=== PATIENT | female | born 1945 | race Caucasian/White ===

== ENCOUNTER → 2017-07-11 12:53 | Outpatient (CLI) | payer MEDICARE, SELFPAY ==
--- NOTE | 2017-07-11 12:58 | STE_ITS ---
Reason For Study: ATRIAL FIBRILLATION/FLUTTER Stress Results Protocol: Stress Echocardiogram Maximum Predicted HR: 146 bpm Target HR: 124 bpm% Maximum Pr edicted HR: 84 % DurationHeart Rate Stage (mm:ss) (bpm) BP BASELINE 60 148/82 MODBRUCE PROTOCOL- STAGE 1 3:00 10 1 154/80 MODBRUCE PROTOCOL- STAGE 2 1:00 12 2 / RECOVERY 62 122/60 Stress Duration: 4:00 mm:ss Maximum Stress HR: 122 bpm Baseline Echocardiogram Findings The estimated ejection fraction is 65 %. Stress Echo Wall motion Data Resting WMIntermediate WMStress WM Resting Wall Motion Wall Motion Stress No regional wall motion No regional wall motion abnormalities noted. abnormalities noted. EKG Data The baseline ECG demonstrates normal sinus rhythm with at rate of _ beats per minute. Interpretation Summary The estimated ejection fraction is 65 %. Normal adequate modified Brayan treadmill echocardiogram. Negative for ischemia by EKG and echocardiographic criteria. No anginal symptoms noted. No arrhythmias noted. Poor exercise capacity for age. Appropriate blood pressure response to exercise. Final LVEF is 75%. Test terminated due to leg discomfort and fatigue. Ordering Physician: Chu Koehler Referring Physician: Chu Koehler Performed By: Maame Hall, CARLOS, RVT
== END ==
PROVIDERS: Family Provider Nurse Practitioner Primary Care; PCP Nurse Practitioner Primary Care; Visit Provider Internal Medicine Cardiovascular Disease
DX: I48.0 Paroxysmal atrial fibrillation (principal); E78.5 Hyperlipidemia, unspecified; I10 Essential (primary) hypertension; I44.2 Atrioventricular block, complete; R55 Syncope and collapse; Z95.0 Presence of cardiac pacemaker
CPT/HCPCS: 93017; 93350

== ENCOUNTER → 2019-02-22 08:04 | Outpatient (CLI) | payer MEDICARE, SELFPAY ==
[2019-02-18 15:24] VITALS: BMI 29.5
[2019-02-22 09:11] LABS: AST(SGOT) 12 U/L (15-37); Alanine Aminotransfer ALT/SGPT 15 U/L (13-56); Albumin, Serum 3.9 g/dL (3.2-5.0); Alkaline Phosphatase 49 U/L (45-117); Bilirubin, Direct 0.17 mg/dL (0.00-0.30); Cholesterol 173 mg/dL (200); Globulin 3.7 g/dL (2.2-4.2); High Density Lipoprotein 55 mg/dL; Protein, Total 7.6 g/dL (6.4-8.2); Triglycerides 139 mg/dL; Very Low Density Lipoprotein 28 mg/dL (5-40)
== END ==
PROVIDERS: Family Provider Nurse Practitioner Primary Care; PCP Nurse Practitioner Primary Care; Referring Provider Internal Medicine Cardiovascular Disease; Visit Provider Internal Medicine Cardiovascular Disease
DX: E78.5 Hyperlipidemia, unspecified (principal)
CPT/HCPCS: 36415; 80061; 80076

== ENCOUNTER 2019-12-08 06:57 | Observation (INO) | payer MEDICARE, SELFPAY ==
[2019-09-02 10:30] VITALS: BMI 30.4
[2019-12-08] VITALS (11 sets, daily range): BP systolic 104–139; BP diastolic 59–88; PULSE 69–91; RESP 16–18; TEMP 36.3–37.1; O2SAT 93–99; BMI 31.1; BMI 30.4; BMI 30.5
--- NOTE | 2019-12-08 07:05 | RAD_ITS ---
STUDY: X-RAY CHEST REASON FOR EXAM: Female, 74 years old. chest pain TECHNIQUE: Single AP portable view of the chest. COMPARISON: None. FINDINGS: Left subclavian dual-lead pacemaker which is unchanged. Poor inspiration with some bibasilar atelectasis. There is no demonstrated pleural abnormality. Normal size heart. Normal mediastinum and caridad. Normal visualized pulmonary arteries. There is atherosclerotic tortuosity of the aortic arch and descending thoracic aorta. Normal visualized thoracic spine. Normal visualized ribs, clavicles, and shoulders. There is no demonstrated abnormality of the visualized soft tissue structures of the upper abdomen. RAD/Chest 1 View (Portable) IMPRESSION: Poor inspiration with some bibasilar atelectasis. Electronically Signed: Layo Vincent MD at 7:41 EDT Tel , Service support ,
--- NOTE | 2019-12-08 07:05 | EKG12_ITS ---
Test Reason : CP Blood Pressure : / mmHG Vent. Rate : 081 BPM Atrial Rate : 088 BPM P-R Int : 000 ms QRS Dur : 078 ms QT Int : 356 ms P-R-T Axes : 000 -10 033 degrees QTc Int : 413 ms Atrial fibrillation with occasional ventricular-paced complexes Abnormal ECG Confirmed by RAFAEL HERNANDEZ, TYRONE ([id number]), copy editor JÚNIOR RAPP ([id number]) on 12/11/2019 9:59:52 AM Referred By: DANDY Confirmed By:TYRONE HALL MD
--- NOTE | 2019-12-08 07:06 | ED.VISSUMM ---
- ER Visit Summary Date of Service: 12/08/19 Chief Complaint: Chest pain History of Present Illness: The patient is a [address] Koehler and Dr. Garcia. She reports she was awakened from sleep by chest pain at 3:00 this morning. Is been a constant pain that waxes and wanes. She describes it as sharp. Is 9 at 10 at worst and 3-10 currently. Is worsened by exertion. Is relieved by Advil. She reports it makes her nauseated and short of breath. She has not vomited. She also complains of generalized weakness. Patient does have a history of atrial fibrillation as well as Xarelto. Her last dose was at 4:00 yesterday. Physical Examination: Vitals: Stable. Afebrile. General: Well-nourished and well-developed. Head: Normocephalic atraumatic. Neck: Supple, no lymphadenopathy. No JVD. Nontender. Cardiovascular: Regular rate and rhythm. No murmurs. Respiratory: No respiratory distress. Clear to auscultation bilaterally. Abdominal: Soft, nontender, nondistended, normal bowel sounds. No guarding, rebound, or peritoneal signs. Back: Nontender. Extremities: Nontender, no edema. Skin: Normal color, no rash. Neurologic: Alert and oriented ?3. Cranial nerves II through XII are intact. Normal strength and sensation. Psych: Normal affect. Test Results: EKG shows A. fib at 81 with ventricular paced PVCs. This is unchanged from June 2017. CBC shows monocytes of 12. Chem-7 shows a chloride of 109 and glucose 110. Troponin is negative. Clinical Impression(s) from Imaging Studies Chest X-Ray 12/08/19 07:05 IMPRESSION: Poor inspiration with some bibasilar atelectasis. Electronically Signed: Layo Vincent MD at 7:41 EDT Tel , Service support , Emergency Department Course and Treatment: Patient was given a dose of aspirin p.o. and Zofran IV. She refused pain medications. Chart review shows she had a stress echo in July 2017 that was negative. Treatment Plan: Patient will be discussed with the hospitalist and admitted for further evaluation and treatment. Disposition: Admitted in stable condition. Impression: 1. Chest pain. 2. Atrial fibrillation. 3. Coagulopathy on Xarelto. 4. ANUSHA score of 3. This note was generated with [employer] dictation software. It may contain incorrect words, spelling, and punctuation that were not noted in review of the chart prior to signing ED Disposition - Plan for ED Patient: Referrals: Kimberly Barrios NP, DEHYDROGENATION SUPERVISOR-C [Primary Care Provider] -
[2019-12-08] MEDS: 0.9% Normal Saline 1,000 ML 150 ML IV (07:15)
[2019-12-08] MEDS: Ondansetron 4 MG/2 ML Vial IV (07:15)
[2019-12-08] MEDS: Aspirin 81 MG TAB.CHEW 324 MG PO (07:15)
[2019-12-08 07:19] LABS: Absolute Lymphocyte Count 1.83 X10^3/uL (0.83-4.51); Absolute Neutrophil Count 4.9 X10^3/uL (2.0-7.7); Basophil# 0.03 X10^3/uL; Basophil% 0.4 % (0-1); Eosinophil# 0.27 X10^3/uL; Eosinophils% 3.3 % (0-5); Hematocrit 43.4 % (37-47); Hemoglobin 13.5 g/dL (12.0-15.0); Lymphocyte # 1.83 X10^3/ul (4.0); Lymphocyte % 22.7 % (19-41); Mean Corp Hgb Conc 31.1 g/dL (32-36); Mean Corpuscular Hgb 27.7 pg (27.0-32.0); Mean Corpuscular Volume 88.9 fL (81-99); Mean Platelet Vol. 10.5 fl (6.2-12.0); Monocyte% 12.4 % (0-10); NRBC Flagged by Analyzer 0 % (0-5); Neutrophil # 4.86 X10^3/uL (2.7-7.7); Neutrophil % 60.3 % (47-70); Platelet Count 287 K/mm3 (150-450); RBC Distribution Width CV 13.1 % (11.6-14.6); RBC Distribution Width SD 42.8 fl (35.1-43.9); Red Blood Count 4.88 M/mm3 (4.2-5.4); White Blood Count 8.1 K/mm3 (4.4-11.0)
[2019-12-08 08:18] LABS: Anion Gap 5 (5-15); BUN 18 mg/dL (7-18); Calcium,Total 9.2 mg/dL (8.5-10.1); Chloride 109 mmol/L (98-107); Creatinine, Serum 0.75 mg/dL (0.55-1.02); EST Glomerular Filtration Rate 80 mL/min (>60); Est Glom Filt Rate - Afr Amer 97 mL/min (>60); Estimated Creatinine Clearance 36.12 ml/min; Glucose 110 mg/dL (74-106); Potassium 3.6 mmol/L (3.5-5.1); Sodium Level 139 mmol/L (136-145)
--- NOTE | 2019-12-08 09:15 | EKG12_ITS ---
Test Reason : CP ADMISSION Blood Pressure : / mmHG Vent. Rate : 072 BPM Atrial Rate : 258 BPM P-R Int : 000 ms QRS Dur : 082 ms QT Int : 380 ms P-R-T Axes : 000 -13 009 degrees QTc Int : 416 ms Undetermined rhythm : Consider Atrial Fibrillation with Electronic Ventricular Pacemaker Confirmed by PAM HERNANDEZ, PRAMOD ([id number]), greeting card editor JÚNIOR RAPP ([id number]) on 12/11/2019 10:24:58 AM Referred By: DIEGO Confirmed By:PRAMOD OROZCO MD
[2019-12-08 09:54] LABS: International Normalized Ratio 1.1; Prothrombin Time (Protime)PT. 13.9 SECONDS (11.7-14.9)
--- NOTE | 2019-12-08 10:11 | HP.PCM_ITS ---
Problem List (1) Hyperlipidemia Status: Chronic Qualifiers: (2) Hypertension Status: Chronic Qualifiers: (3) Paroxysmal atrial fibrillation Status: Chronic (4) Complete heart block Status: Chronic (5) Presence of cardiac pacemaker Status: Chronic Comment: Dual Chamber PPM insertion @ [facility] History of Present Illness Date of Admission: 12/08/19 Chief Complaint: Chest pain. The patient is a 74 year old F with past medical history as mentioned above presented to the emergency room because of chest pain. Her symptoms started at 3 AM this morning, woke up from sleep because of chest pain, it was across her chest, pressure-like pain, 9 out of 10 in severity, not radiating, associated with shortness of breath as well as dizziness, lasted for about 20 minutes, took 2 tablets of Advil and felt better. Around 6 AM, the pain came back 6, same type of pain with same location, lasted for about 30 minutes and then she decided to come to the emergency department. Currently, she still having pain but improved, it is down to 3 out of 10 in severity. In the emergency department, her vital signs were stable. Her routine blood work was unremarkable. EKG revealed A. fib, no acute segment changes. First troponin was negative. Chest x-ray showed no acute findings. She is being admitted for chest pain for evaluation. Past Medical History Past Medical History (Chronic Problems): Chronic Problems (Last Reviewed 02/15/19 @ 10:55 by Abiola Soler) Obesity (Chronic) Nonrheumatic tricuspid valve regurgitation (Chronic) Hyperlipidemia (Chronic) Hypertension (Chronic) Paroxysmal atrial fibrillation (Chronic) Complete heart block (Chronic) Presence of cardiac pacemaker (Chronic 04/04/16) Dual Chamber PPM insertion @ [facility] Medical History: Medical History (Last Updated 12/08/19 @ 10:[address] Kassi Quintero MD) Obesity (Chronic) E66.9 Nonrheumatic tricuspid valve regurgitation (Chronic) I36.1 Hyperlipidemia (Chronic) E78.5 Hypertension (Chronic) I10 Paroxysmal atrial fibrillation (Chronic) I48.0 Complete heart block (Chronic) I44.2 L great toenail removal Allergies apixaban [From Eliquis] Adverse Reaction (Verified 12/08/19 07:01) [place] like she was on fire and had vomiting Home Medications: Ambulatory Orders Medication Instructions Recorded Lisinopril/Hydrochlorothiazide 1 tab PO DAILY 09/14/15 [Zestoretic 12/15.5 Tablet] Simvastatin [Zocor] 80 mg PO QHS 09/14/15 multivitamin 1 tab PO QAM 06/19/17 rivaroxaban 20 mg tablet 20 mg PO DAILY #90 tab 10/31/19 Surgical History: Surgical History (Last Reviewed 12/08/19 @ 10:[address] Kassi Quintero MD) Presence of cardiac pacemaker (Chronic) Onset Date: 04/04/16 Z95.0 Dual Chamber PPM insertion @ [facility] History of cataract surgery Z98.49 Surgical History: appendectomy, cataract Psychiatric History: No pertinent psych hx Lives: Alone Smoking Status: Former smoker Alcohol: None Drugs: None - *Family History Maternal Family History: Family History (Last Reviewed 12/08/19 @ 10:[address] Kassi Quintero MD) Father COPD (chronic obstructive pulmonary disease) History Items: No pertinent history Paternal Family History: Family History (Last Reviewed 12/08/19 @ 10:[address] Kassi Quintero MD) Father COPD (chronic obstructive pulmonary disease) Review of Systems Constitutional: Denies: Anorexia, Chills, Fever, Weakness Eyes: Denies: Blurred vision, Double vision, Drainage, Redness HEENT: Denies: Difficulty Hearing, Ear Pain, Eye Pain, Nasal Congestion, Sore Throat Cardiovascular: Reports: Chest Pain, Chest Pressure. Denies: Edema, Heaviness, Light Headedness, Palpitations, Paroxysmal Noc. Dyspnea, Syncope Respiratory: Reports: Shortness of Breath. Denies: Cough, Hemoptysis, Pleuritic Pain, Sputum production, Wheezing Gastrointestinal: Denies: Abdominal Pain, Constipation, Diarrhea, Nausea, Vomiting Genitourinary: Denies: Dysuria, Frequency, Hematuria Musculoskeletal: Denies: Arm Pain, Back Pain, Foot Pain Skin: Denies: Dryness, Rash Neurological: Denies: Balance problems, Blurred vision, Double vision, Change in Speech, Confusion, Incoordination, Numbness, Tingling Psychiatric: Denies: Anxiety, Depression Endocrine: Denies: Change in Body Habitus, Polydipsia, Polyuria VTE Information - Inpt Only VTE Present on Admission: No VTE Mechan Device Prophylaxis: None VTE Pharm Prophylaxis ordered?: No - Physical Exam Vitals/I&O's: Vital Signs Temp Pulse Resp BP Pulse Ox 98.4 F 72 16 119/64 98 12/08/19 09:00 12/08/19 09:46 12/08/19 09:00 12/08/19 09:00 12/08/19 09:20 Oxygen Delivery Method Room Air Weight: 161 lb 6.054 oz Body Mass Index (BMI) 30.4 Intake and Output for Last 24 Hours 12/06/19 12/07/19 12/08/19 23:59 23:59 23:59 Intake Total Balance General: Alert, Oriented x3, Cooperative, No apparent distress HEENT: Atraumatic, PERRLA, EOMI, Normocephalic Oral: Moist Mucosa, No Gingival or Mucosal Lesions/ Ulcerations Neck: Supple, No JVD, Negative Carotid Bruits, Trachea Midline, Thyroid Normal Size and Texture Lungs: Clear to auscultation, Normal air movement, No rhonchi, No wheeze, No rales Cardiovascular: Normal S1, Normal S2, PMI Normal, Irregular Rate Abdomen: Bowel Sounds Present, Soft, Non Tender, Non-Distended, No Hepato-splenomegaly Extremities: No clubbing, No cyanosis, No edema Skin: No rashes, No breakdown Lymphatic: No Cervical, Supraclavicular, or Inguinal Adenopathy Neurological: Cranial nerves II-XII grossly intact, Motor Exam 5/5 strength throughout Psych/Mental Status: Normal Affect, Appropriate, Alert and oriented to time, place, person, mood and affect Laboratory Results 12/08/19 07:00: WBC 8.1, RBC 4.88, Hgb 13.5, Hct 43.4, MCV 88.9, MCH 27.7, MCHC 31.1 L, RDW Std Deviation 42.8, RDW Coeff of Caro 13.1, Plt Count 287, MPV 10.5, Immature Gran % (Auto) 0.900, Neut % (Auto) 60.3, Lymph % (Auto) 22.7, [place] % (Auto) 12.4 H, Eos % (Auto) 3.3, Baso % (Auto) 0.4, Absolute Neuts (auto) 4.9, Absolute Lymphs (auto) 1.83, Nucleated RBC % 0 10/04/20 07:00: Sodium 139, Potassium 3.6, Chloride 109 H, Carbon Dioxide 25.0, Anion Gap 5, BUN 18, Creatinine 0.75, Estim Creat Clear Calc 36.12, Est GFR (MDRD) Af Amer 97, Est GFR (MDRD) Non-Af 80, BUN/Creatinine Ratio 24.0 H, Glucose 110 H, Calcium 9.2, Troponin I < 0.015 12/08/19 09:35: Troponin I < 0.015 12/08/19 09:35: PT 13.9, INR 1.1 Clinical Impression(s) from Imaging Studies Chest X-Ray 12/08/19 07:05 IMPRESSION: Poor inspiration with some bibasilar atelectasis. Electronically Signed: Layo Vincent MD at 7:41 EDT Tel , Service support , Current Medications Acetaminophen (Tylenol) 650 mg PO Q6H PRN PRN PRN Reason: Pain Score 1-10/Temp > 100.7 F Atorvastatin Calcium (Lipitor) 40 mg PO QHS JAMI Hydrochlorothiazide () 12.5 mg PO DAILY JAMI Lisinopril (Zestril) 10 mg PO DAILY JAMI Ondansetron HCl (Zofran) 4 mg IV Q8H PRN PRN PRN Reason: NAUSEA/VOMITING Rivaroxaban (Xarelto) 20 mg PO DINNER JAMI Sodium Chloride () 10 - 40 ml IV UD PRN PRN Reason: SALINE FLUSH Zolpidem Tartrate (Ambien (Generic)) 5 mg PO QHS PRN PRN PRN Reason: INSOMNIA Assessment/Plan This is a 74 years old female patient presented to the emergency room because of chest pain and she is being admitted for evaluation. #1 chest pain: Seems to be atypical. Risk factors are age, hypertension, hyperlipidemia. Initial EKG revealed A. fib, no acute segment changes. Troponin is negative. Chest x-ray without acute findings. She had stress echocardiogram back on Jul, 2017 that was negative for ischemia by EKG and echocardiographic criteria, ejection fraction was 75%. Plan: Admit to PCU for observation, cardiac monitoring, serial cardiac enzymes, continue Lipitor, Xarelto and lisinopril, nuclear stress test tomorrow morning if cardiac enzymes are negative. #2 paroxysmal atrial fibrillation: Heart rate stable, continue Xarelto for anticoagulation. She is not on any medication for rate control. #3 hypertension: Blood pressure stable, continue HCTZ/lisinopril. #4 complete heart block: Status post pacemaker, heart rate stable, blood pressure stable. Pacer check was done on August, and it appeared to be functioning appropriately according to cardiology note on September 02, 2019. #5 hyperlipidemia: Continue statins. #6 DVT prophylaxis: Continue Xarelto. This note was generated with [employer] software. It may contain incorrect words, spelling, and punctuation that were not noted in checking the note before signing. OBSV E&M: [id number] Initial observation care L3
[2019-12-08] MEDS: Lisinopril 10 MG Tablet PO (16:14)
[2019-12-08] MEDS: hydroCHLOROthiazide 12.5mg 12.5 MG PO (16:14)
[2019-12-08] MEDS: Rivaroxaban 20 MG Tablet PO (16:15)
[2019-12-08] MEDS: Atorvastatin Calcium 40 MG Tablet PO (16:15)
--- NOTE | 2019-12-08 16:15 | NURSING ---
pt request all medications to be given at 1600
[2019-12-09] VITALS (7 sets, daily range): BP systolic 101–119; BP diastolic 60–67; PULSE 61–87; RESP 16–18; TEMP 36.4–36.8; O2SAT 94–96
--- NOTE | 2019-12-09 05:55 | EKG12_ITS ---
Test Reason : AM EKG Blood Pressure : / mmHG Vent. Rate : 074 BPM Atrial Rate : 340 BPM P-R Int : 000 ms QRS Dur : 076 ms QT Int : 380 ms P-R-T Axes : 000 -12 030 degrees QTc Int : 421 ms Atrial fibrillation with frequent ventricular-paced complexes Abnormal ECG Confirmed by PAM HERNANDEZ, PRAMOD ([id number]), order editor JÚNIOR RAPP ([id number]) on 12/11/2019 10:17:29 AM Referred By: CAROLEE Confirmed By:PRAMOD OROZCO MD
[2019-12-09] MEDS: Lisinopril 10 MG Tablet PO (06:04)
[2019-12-09] MEDS: 0.9% Saline Lock 10 ML Syringe IV (10:50)
[2019-12-09] MEDS: hydroCHLOROthiazide 12.5mg 12.5 MG PO (10:50)
[2019-12-09] MEDS: Acetaminophen 325 MG Tablet 650 MG PO (10:53)
--- NOTE | 2019-12-09 11:04 | STRESSREP ---
Stress Test Report Pharmacologic myocardial perfusion stress test. 74-year-old lady with a history of chest pain. Stress protocol: Resting EKG demonstrates atrial fibrillation with a rate of 86 bpm normal intervals are noted resting blood pressure is 126/78 mmHg. 0.4 mg of regadenoson was infused per usual protocol fluid buildup intravenous saline flush injection continuous EKG monitoring was performed. The maximum heart rate was 105 bpm which was 72% of max impacted heart rate the maximum workload was 1 metabolic equivalent. At rest there were no ST or T wave changes noted to suggest abnormal flow reserve at peak infusion nonspecific ST-T wave changes were noted with no meet the criteria for abnormal flow reserve. The resting blood pressure was 126/78 with a final blood pressure of the same. Myocardial perfusion protocol. 12.0 mCi of technetium 99m sestamibi was injected at rest. 0.4 mg of regadenoson was infused per usual protocol. At peak infusion 33.0 mCi of technetium 99m sestamibi was injected stress images were obtained stress and rest images were reconstructed and compared in the short axis vertical long and horizontal long axis. Gated images were also obtained per Perfusion SPECT analysis: Review of the stress images demonstrate normal uptake of tracer noted in all areas of the myocardium the resting images similar demonstrate normal uptake of tracer noted in all areas of the myocardium. No areas of reversibility are noted to suggest ischemia no previous infarct is noted. Gated SPECT analysis: The gated ejection fraction is 70%. Conclusion: Normal pharmacologic myocardial perfusion stress test. Preserved ejection fraction. Atrial fibrillation noted.
--- NOTE | 2019-12-09 11:35 | CASEMGMT ---
This RN CM to room with THOMPSON form at this time, explanation done-pt voices understanding, and pt signs THOMPSON form at this time. Pt declines a copy of THOMPSON form at this time and original to chart. Pt voices no further questions/concerns/needs at this time. [place]en EVONNE CM
--- NOTE | 2019-12-09 11:47 | DCINST_ITS ---
You will use the following diet at home:: Cardiac Your food should be the consistency of: Regular Your liquids should be the consistency of: Regular/Thin Discharge Activity: Return to Normal Activity Allergies/Adverse Reactions: Allergies apixaban [From Eliquis] Adverse Reaction (Verified 12/08/19 07:01) [place] like she was on fire and had vomiting Medications to take at Discharge Lisinopril/Hydrochlorothiazide [Zestoretic 12/15.5 Tablet] 1 tab PO DAILY 09/14/15 Simvastatin [Zocor] 80 mg PO QHS 09/14/15 multivitamin 1 tab PO QAM 06/19/17 rivaroxaban 20 mg tablet 20 mg PO DAILY #90 tab 10/31/19 Metoprolol Tartrate [Lopressor (beta avril)] 25 mg PO BID #60 tab 12/09/19 The following prescriptions were given: Metoprolol Tartrate [Lopressor (beta avril)] 25 mg PO BID #60 tab Transmission Status: Pending to [address] Primary Care Physician: Kimberly Barrios DIEING OUT MACHINE OPERATOR, DIEING OUT MACHINE OPERATOR-C [Primary Care Provider] - Please follow up with your Primary Care Physician in: 1-2 weeks Test Results: Test results from this visit will be discussed in further detail at your follow- up appointment, if applicable. Please Follow Up With: Iván Mendoza MD When: 2-4 weeks Proposed Discharge Date: 12/09/19
--- NOTE | 2019-12-09 12:51 | PCM.DC.SUM ---
<Lucien Ferrer - Last Filed: 12/09/19 12:51> Discharge Date and Diagnosis Date of Admission: 12/08/19 Date of Discharge: 12/09/19 - Primary Discharge Diagnosis Acute Problems: Chest pain - musculoskeletal paroxysmal Afib Hx heart block with pacer in place - Secondary Discharge Diagnosis Chronic Problems: Chronic Problems (Last Reviewed 12/08/19 @ 10:[address] Kassi Quintero MD) Obesity (Chronic) Nonrheumatic tricuspid valve regurgitation (Chronic) Hyperlipidemia (Chronic) Hypertension (Chronic) Paroxysmal atrial fibrillation (Chronic) Complete heart block (Chronic) Presence of cardiac pacemaker (Chronic 04/04/16) Dual Chamber PPM insertion @ [facility] Course and Treatment Imaging Results: DIAGNOSTICS 12/09/19 05:55 Nuclear Stress Test - Chemical [NM] AM (NON MEDS) Gated SPECT analysis: The gated ejection fraction is 70%. Conclusion: Normal pharmacologic myocardial perfusion stress test. Preserved ejection fraction. Atrial fibrillation noted. RAD/Chest 1 View (Portable) IMPRESSION: Poor inspiration with some bibasilar atelectasis. Operations: None Procedures: Stress test Summary of Care Provided: Hospital Course: The patient is a 74 year old F with pmhx of paroxysmal afib, complete heart block with pacer in place, HTN, HLD, who presented to the ER with c/o chest pain. She described this as a crushing pressure 9/10 that woke her up from sleep. She came to the ER and had an EKG showing afib, negative troponin, cxr with atelectasis. The patient was admitted for chest pain workup. Chest pain resolved in the ER and did not return. She had no palpitations lightheadedness, dizziness, or SOB. She had negative troponin x3. She had a negative stress test the following day. Tele showed some tachycardia and ventricular pacing at times. She was not on any rate limiting medications or antiarrhythmics. She was placed on lopressor 25 BID. She is already on xarelto for Afib. Arrangements were made for her to have close follow up with cardiology in the office in 2-[address] Mendoza. She was discharged home in stable condition. This patient was seen by Lucien Ferrer PA-C under the supervision of Dr. Bright.[] - Physical Exam Vitals/I&O's: Vital Signs Temp Pulse Resp BP Pulse Ox 97.5 F L 72 18 102/67 95 12/09/19 10:50 12/09/19 10:50 12/09/19 10:50 12/09/19 10:50 12/09/19 10:50 Oxygen Delivery Method Room Air Weight: 161 lb 6.054 oz Body Mass Index (BMI) 30.4 Intake and Output for Last 24 Hours 12/07/19 12/08/19 12/09/19 23:59 23:59 23:59 Intake Total 1050 / 1050 240 / 240 Balance 1050 / 1050 240 / 240 General: Alert, Oriented x3, Cooperative HEENT: Atraumatic, PERRLA, EOMI, Normocephalic Neck: Supple, No JVD, Negative Carotid Bruits Lungs: Clear to auscultation, Normal air movement Cardiovascular: Regular rate, No murmurs Abdomen: Bowel Sounds Present, Soft, Non Tender Extremities: No edema, Capillary Refill Less than 3 Seconds Skin: No rashes, No breakdown Musculoskeletal: No Tenderness to Palpation of Joints or Extremities Neurological: Cranial nerves II-XII grossly intact Psych/Mental Status: Normal Affect, Appropriate, Alert and oriented to time, place, person, mood and affect Laboratory Results 12/08/19 12:48: Troponin I < 0.015 Discharge Diet: Low fat/ Low Cholesterol, 2000 mg Sodium Diet Discharge Activity: Return to Normal Activity Home Medications: Medications to take at Discharge Lisinopril/Hydrochlorothiazide [Zestoretic 12/15.5 Tablet] 1 tab PO DAILY 09/14/15 Simvastatin [Zocor] 80 mg PO QHS 09/14/15 multivitamin 1 tab PO QAM 06/19/17 rivaroxaban 20 mg tablet 20 mg PO DAILY #90 tab 10/31/19 Metoprolol Tartrate [Lopressor (beta avril)] 25 mg PO BID #60 tab 12/09/19 Following Prescriptions Were Given to Patient: Metoprolol Tartrate [Lopressor (beta avril)] 25 mg PO BID #60 tab Transmission Status: Received by MEGGAN [id number] Primary Care Physician: Kimberly Barrios NP, COMMERCIAL SALES CONSULTANT-C [Primary Care Provider] - Please follow up with your Primary Care Physician in: 1-2 weeks Please Follow Up With: Iván Mendoza MD When: 2-4 weeks Please Follow Up With: Kimberly Bariros NP-C Disposition: Home Minutes spent on discharge:: 35 Patient Condition:: Stable Medical Necessity - Tobacco Use Smoking Status: Former smoker Meaningful Use Info Meaningful Use Diagnoses (Choose all that apply): None applicable <Bobo Bright - Last Filed: 12/09/19 15:39> Discharge Date and Diagnosis - Secondary Discharge Diagnosis Chronic Problems: Chronic Problems (Last Reviewed 12/08/19 @ 10:[address] Kassi Quintero MD) Obesity (Chronic) Nonrheumatic tricuspid valve regurgitation (Chronic) Hyperlipidemia (Chronic) Hypertension (Chronic) Paroxysmal atrial fibrillation (Chronic) Complete heart block (Chronic) Presence of cardiac pacemaker (Chronic 04/04/16) Dual Chamber PPM insertion @ [facility] Course and Treatment Summary of Care Provided: This patient was seen in conjunction with Lucien Ferrer PA-C . I have independently interviewed and examined the patient and reviewed pertinent historical, laboratory, and other data. Please refer to Lucien Ferrer PA-C note for details of this patient's presentation, findings, and recommendations. I have reviewed Lucien Ferrer PA-C note and concur with documented findings. In brief, patient is a 58-year-old lady with multiple comorbidities including paroxysmal A. fib, conduction system disorder status post pacemaker placement dyslipidemia hypertension presented with chest pain. Patient was placed on a monitored bed [place] was ruled out with serial cardiac enzymes underwent a nuclear stress test which was negative for stress-induced ischemia. Hospital course: As documented above - Physical Exam Vitals/I&O's: Vital Signs Temp Pulse Resp BP Pulse Ox 97.5 F L 72 18 102/67 95 12/09/19 10:50 12/09/19 10:50 12/09/19 10:50 12/09/19 10:50 12/09/19 10:50 Oxygen Delivery Method Room Air Weight: 73.2 kg Body Mass Index (BMI) 30.4 Intake and Output for Last 24 Hours 12/07/19 12/08/19 12/09/19 23:59 23:59 23:59 Intake Total 1050 / 1050 240 / 240 Balance 1050 / 1050 240 / 240 OBSV E&M: 89738 Observation care discharge
== END 2019-12-09 11:47 | disposition home or self-care (01) ==
LOC: ED 07:40 → PCU 09:28
PROVIDERS: Admitting Provider Hospitalist; Emergency Provider Emergency Medicine; PCP Nurse Practitioner Primary Care; Visit Provider Internal Medicine
DX: R07.89 Other chest pain (principal); I48.0 Paroxysmal atrial fibrillation; Z79.899 Other long term (current) drug therapy; Z79.01 Long term (current) use of anticoagulants; D68.9 Coagulation defect, unspecified; I10 Essential (primary) hypertension; E78.5 Hyperlipidemia, unspecified; Z95.0 Presence of cardiac pacemaker; E66.9 Obesity, unspecified; Z68.30 Body mass index [BMI] 30.0-30.9, adult; Z87.891 Personal history of nicotine dependence
CPT/HCPCS: 36415; 71045; 78452; 80048; 84484; 85025; 85610; 93005; 93017; 96374; 99218; 99285; A9500; J7030; A4216; G0378; J2405; J2785

== ENCOUNTER 2022-01-17 16:35 | Emergency (ER) | payer MEDICARE, SELFPAY ==
[2022-01-17 16:36] VITALS: BP 161/110; PULSE 89; RESP 18; TEMP 36.8; O2SAT 94; BMI 28.3
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
[2022-01-17 18:32] LABS: Bacteria 0 SEEN /hpf (None Seen); Mucous, Urine 0 SEEN /hpf (<or=2+); Squamous Epithelial Cells - UA 0 SEEN /hpf (5-10)
[2022-01-17 18:37] LABS: Absolute Lymphocyte Count 1.61 X10^3/uL (0.83-4.51); Absolute Neutrophil Count 5.1 X10^3/uL (2.0-7.7); Basophil# 0.02 X10^3/uL; Basophil% 0.3 % (0-1); Eosinophil# 0.16 X10^3/uL; Eosinophils% 2.1 % (0-5); Hematocrit 36.1 % (37-47); Hemoglobin 11.8 g/dL (12.0-15.0); Lymphocyte # 1.61 X10^3/ul (0.83-4.51); Lymphocyte % 20.7 % (19-41); Mean Corp Hgb Conc 32.7 g/dL (32-36); Mean Corpuscular Hgb 28.2 pg (27.0-32.0); Mean Corpuscular Volume 86.4 fL (81-99); Mean Platelet Vol. 10.5 fl (6.2-12.0); Monocyte# 0.86 X10^3/uL; Monocyte% 11.1 % (0-10); NRBC Flagged by Analyzer 0 % (0-5); Neutrophil # 5.09 X10^3/uL (2.7-7.7); Neutrophil % 65.4 % (47-70); Platelet Count 202 K/mm3 (150-450); RBC Distribution Width CV 14.5 % (11.6-14.6); RBC Distribution Width SD 45.9 fl (35.1-43.9); Red Blood Count 4.18 M/mm3 (4.2-5.4); White Blood Count 7.8 K/mm3 (4.4-11.0)
[2022-01-17 18:51] LABS: ALB/GLOB Ratio 1.2 RATIO (0.9-2.4); AST(SGOT) 16 U/L (15-37); Alanine Aminotransfer ALT/SGPT 29 U/L (13-56); Albumin, Serum 3.7 g/dL (3.2-5.0); Alkaline Phosphatase 43 U/L (45-117); Anion Gap 8 (5-15); BUN 11 mg/dL (7-18); BUN/Creat Ratio 15.6 RATIO (10-20); Calcium,Total 9.5 mg/dL (8.5-10.1); Chloride 107 mmol/L (98-107); EST Glomerular Filtration Rate 85 mL/min (>60); Est Glom Filt Rate - Afr Amer 103 mL/min (>60); Globulin 3.2 g/dL (2.2-4.2); Glucose 107 mg/dL (74-106); Protein, Total 6.9 g/dL (6.4-8.2); Sodium Level 141 mmol/L (136-145)
[2022-01-17 18:58] LABS: Color, Urine Red (Yellow); Glucose, Dipstick Normal (Normal); Ketone-Dipstick 5 mg/dl (Negative); Leukocyte Esterase-Dipstick Negative /ul (Negative); Nitrite-Dipstick Negative (Negative); Occult Blood-Urine 250 /ul (Negative); Protein-Dipstick 500 mg/dl (Negative); Specific Gravity, Urine 1.015 (1.002-1.030); Urine Bilirubin Dipstick Negative (Negative); Urine Clarity Cloudy (Clear); Urine Urobilinogen Normal (Normal)
[2022-01-17 19:15] LABS: Red Blood Cells-Urine > 100 SEEN /hpf (0-5); White Blood Cells 0-5 SEEN /hpf (0-5)
[2022-01-17 20:35] VITALS: RESP 16
== END 2022-01-17 21:00 | disposition home or self-care (01) ==
PROVIDERS: Emergency Provider Emergency Medicine; PCP Nurse Practitioner Primary Care; Visit Provider Emergency Medicine
DX: R31.9 Hematuria, unspecified (principal); I48.0 Paroxysmal atrial fibrillation; I10 Essential (primary) hypertension; E78.5 Hyperlipidemia, unspecified; E66.9 Obesity, unspecified; Z87.891 Personal history of nicotine dependence; Z95.0 Presence of cardiac pacemaker
CPT/HCPCS: 80053; 81001; 85025; 99282; J7040; A4216